=== PATIENT | female | born 1985 | race Caucasian/White ===

== ENCOUNTER → 2017-06-25 | Outpatient (CLI) | payer MEDICAID ==
--- NOTE | 2017-06-25 13:47 | CPEEG ---
[f rep st] ELECTROENCEPHALOGRAM DATE OF STUDY: INTRODUCTION: This is a multichannel EEG using the standard international 10-20 system of disc elec trode placement. A single EKG channel is monitored for the duration of the study. This study is un dertaken for the evaluation of paroxysmal spells of abnormal behavior. No pertinent medications rep orted. Duration of the study is 30 minutes. DESCRIPTION OF RECORDING: In the maximal alert state, the patient achieved a symmetric posterior do minant rhythm of 9 Hz alpha activity that attenuated with eye opening. Provocative measures, includ ing photic stimulation and hyperventilation failed to activate the tracing. Drowsiness was marked b y waning of the background and anterior spread of alpha and slow roving eye movements. N1 sleep arc hitecture was noted as marked by POSTS and vertex waves. N2 sleep was achieved as marked by K compl exes and spindle activity. The EKG demonstrated normal sinus rhythm. INTERPRETATION: This is a normal awake through N2 sleep EEG. CLINICAL CORRELATION: No focal lateralizing epileptiform discharges. /[id number]/MODL
== END ==
LOC: FCPNEURO 09:06
PROVIDERS: ATTEND Psychiatry & Neurology Neurology
DX: R46.89 Other symptoms and signs involving appearance and behavior (principal); R40.4 Transient alteration of awareness

== ENCOUNTER → 2017-08-01 | Outpatient (CLI) | payer MEDICAID | LOC: FIMAGING 15:00 | PROVIDERS: ATTEND Psychiatry & Neurology Neurology | DX: R55 Syncope and collapse (principal) ==